=== PATIENT | male | born 1985 ===

== ENCOUNTER 2017-06-16 15:43 | Inpatient (IN) | payer MEDICAID ==
--- NOTE | 2017-06-16 16:14 | C.PDOC ---
History Of Present Illness Patient is a 31 y/o male who presents to the ED as a psych transfer from [facility] for substance abuse and SI. Patient is calm and cooperative. Admits to depression and anxiety. Patient states he has no physical complaints at this time. Time Seen by Provider: 06/16/17 15:51 Chief Complaint (Nursing): Psychiatric Evaluation History Per: Patient, EMS History/Exam Limitations: other (AMS) Modifying Factor(s): Other (opioid use. ) Associated Symptoms: Anxiety, Depression Recent travel outside of the [place]: No Past Medical History Reviewed: Historical Data, Nursing Documentation, Vital Signs Vital Signs: Last Vital Signs Temp 97.5 F L 06/16/17 15:45 Pulse 70 06/16/17 15:45 Resp 16 06/16/17 15:45 BP 115/71 06/16/17 15:45 Pulse Ox 100 06/16/17 16:14 - Medical History PMH: No Chronic Diseases Surgical History: No Surg Hx Family History: States: No Known Family Hx - Social History Hx Alcohol Use: No Hx Substance Use: Yes - Immunization History Hx Tetanus Toxoid Vaccination: No Hx Influenza Vaccination: No Hx Pneumococcal Vaccination: No Review Of Systems Review Of Systems: ROS cannot be obtained secondary to pt's inabilty to answer questions. (AMS) ED Course And Treatment O2 Sat by Pulse Oximetry: 100 (Room air) Pulse Ox Interpretation: Normal Medical Decision Making Medical Decision Making: Plan: Admit to Psych. Disposition - Disposition Disposition Time: 16:13 Condition: GUARDED - Clinical Impression Clinical Impression: Single major depressive episode, severe, with psychosis, Suicidal ideations - Scribe Statement The provider has reviewed the documentation as recorded by the Scribtigre Myles All medical record entries made by the Lloydibtigre were at my direction and personally dictated by me. I have reviewed the chart and agree that the record accurately reflects my personal performance of the history, physical exam, medical decision making, and the department course for this patient. I have also personally directed, reviewed, and agree with the discharge instructions and disposition.
[2017-06-16] MEDS ORDERED: Aluminum Hydroxide/Magnesium Hydroxide Susp (30 mL) PO PRN (17:26)
--- NOTE | 2017-06-16 18:48 | PCM.BM ---
<Megan Murphy - Last Filed: 06/16/17 18:46> Treatment Plan Problems - Problems identified on initial assessmt Depression Date Initiated: 06/16/17 Time Initiated: 18:46 Assessment reference: NA Status: Active Treatment assets and liabiliti Patient Assests: cooperative, self-reliant, ADL independent Patient Liabilities: relationship conflicts, substance abuse - Milieu Protocol Maintain good personal hygiene: daily Encourage regular showers, daily Remind patient to perform daily oral care Conduct patient checks and document Observation sheet: Q15 minutes Maintain personal safety: every shift Educate patient to report safety concerns to staff, every shift Monitor environment for contraband/sharps Medication safety: Monitor for expected outcome, potential side effects: every shift, Assess barriers to learning: every shift, Assess readiness for medication education: every shift <Meme Shannon - Last Filed: 06/17/17 11:25> Family Contact Family involvement: Family/SO is involved Family contact: Patient declines to allow family contact at present - Goals for Treatment Patient goals for treatment: "I want to go home." Discharge/Continuing Care - Education Needs Education Needs: Patient Medication, Patient Coping Skills - Discharge Discharge Criteria: Tolerates medication w/o severe side effects, Reduction of target symptoms Discharge to:: Home, With Family - Treatment Team Participation Discussed with Family/SO: No Was Patient/Family/SO present at Treatment Team Meeting: Yes <Magda York - Last Filed: 06/17/17 11:27> - Diagnosis (1) Bipolar disorder, current episode mixed, moderate Status: Acute Interventions: 06/17/17 11:26 * Assess/adjust medications daily and /or as needed * See patient on an individual basis 7x/week to assess level of manic behaviors and stability * Discuss risks, benefits, side effects and alternatives of medications * (2) Opioid use disorder, severe, dependence Status: Acute Interventions: 06/17/17 11:27 * Assess 7x/week regarding severity of withdrawal * Educate regarding risks, benefits, side effects and alternatives of medications * Use Motivational Interviewing for abstinence * Use CBT for relapse prevention * Medication management for withdrawal symptoms * Encourage medication assisted treatment *
--- NOTE | 2017-06-17 09:40 | PCM.PSYCH ---
Initial Psychiatric Evaluation - Initial Psychiatric Evaluation Type of Admission: Voluntary Legal Status: Capacity Chief Complaint (in patient's own words): I am feeling depressed. History of Present Illness and Precipitating Events: Pt. is seen, chart reviewed, and case discussed with staff. Pt. is a 31 y/o male who presented to the ED as a psych transfer from [facility] for substance abuse and SI. Pt. states he tried to kill himself by overdosing on Xanax and Tylenol, but had failed. Pt. has past history of suicide attempt 2 yrs. ago where he overdosed on pills but was unsuccessful. Pt. reports to being depressed and anxious. Pt. claims to using 24 bags of heroin IV daily for the past 5 yrs. His last use was yesterday at 7 AM, where he used 22 bags IV. His longest period of sobriety was for 2 yrs. in [id number]. Pt. is currently experiencing withdrawal sxs.--anxiety, restless leg, back pain , yawning, and insomnia. Pt. denies use of marijuana, cocaine, PCP, and LSD. Pt. reports to smoking one pack of cigarettes daily. Pt. denies use of alcohol. Pt. states he has been depressed for about 4 yrs. now. Pt. reports he has been hospitalized in the past for depression and was taking medications, but does not remember the names. Pt. reports he used to have auditory hallucinations, but denies having them now. He also denies visual hallucinations. Pt. claims he was unable to sleep and is very anxious due to withdrawal from heroin. He claims to having decreased energy and concentration. Pt. also reports that his brain is running 100 ,miles per hour. He also reports elevated moo and flight of ideas. Past Psych Hx: has been seeing psychiatrist (Dr. Salcido at [facility], 1x every 2 wks. for 4 months; hospitalization for depression; 2x suicide attempts; denies detox, rehab PMH: denies Fam. Hx: denies Social: single; no children; lives with sister at [place] (sister does not use) ; unemployed-receives support from family After care discussed. Pt. is willing to go to outpatient treatment after discharge. Current Medications: Active Medications Generic Name Dose Route Start Last Admin Trade Name Freq PRN Reason Stop Dose Admin Al Hydrox/Mg Hydrox/Simethicone 30 ml 06/16/17 17:26 Maalox 30 Ml PO TID PRN Indigestion / Heartburn Clonidine HCl 0.1 mg 06/16/17 17:26 Catapres PO Q8 PRN COWS Score More or Equal to 5 Hydroxyzine HCl 25 mg 06/16/17 17:26 06/17/17 08:17 Atarax PO 25 mg Q6 PRN Administration Agitation Loperamide HCl 2 mg 06/16/17 17:26 Imodium PO Q8 PRN Diarrhea Ondansetron HCl 4 mg 06/16/17 17:26 Zofran Tab PO Q8 PRN Nausea/Vomiting Pseudoephedrine HCl 60 mg 06/16/17 17:26 Sudafed Tab PO QID PRN Nasal/Sinus Congestion Quetiapine Fumarate 50 mg 06/16/17 22:00 06/16/17 21:35 Seroquel PO 50 mg HS NAIDA Administration Past Psychiatric History - Past Psychiatric History Previous Treatment History: Inpatient Pertinent Medical Hx (Current Medical&Sleep Prob, Allergies): Allergies Allergy/AdvReac Type Severity Reaction Status Date / Time No Known Allergies Allergy Unverified 06/16/17 15:45 No Known Home Med 06/16/17 Review of Systems - Review of Systems All systems: reviewed and no additional remarkable complaints except - Psychiatric Psychiatric: Anxiety, Irritability, Suicidal Ideation Mental Status Examination - Personal Presentation Personal Presentation: Looks stated age - Affect Affect: Constricted, Depressed - Motor Activity Motor Activity: Psychomotor Agitation - Reliability in Providing Information Reliability in Providing Information: Poor, due to altered mood - Speech Speech: Organized - Mood Mood: Depressed, Anxious - Formal Thought Process Formal Thought Process: No Impairment - Obsessions/Compulsions Obsessions: No Compulsions: No - Cognitive Functions Orientation: Person, Place, Situation, Time Sensorium: Alert Attention/Concentration: Attentive Abstract Thinking: [place] Estimate of Intelligence: Below average Judgement: Imparied, as evidence by: Poor judgement, Imparied, as evidence by: Lack of insight into illness - Risk Risk: Suicidal, Withdrawal, Diminished functioning - Strength & Assets Inventory Strength & Assets Inventory: Employment history DSM 5 DX - DSM 5 DSM 5 Diagnosis: Bipolar disorder mixed moderate Opiate use disorder severe Opiate withdrawal - Recommended/Plan of Treatment Treatment Recommendations and Plan of Treatment: Bipolar disorder mixed moderate Seroquel 100 mg PO HS Depakote 250 mg PO BID CBT Psychoeducation Supportive therapy, group therapy, individual therapy Opiate use disorder severe CBT for relapse prevention Psychoeducation Supportive therapy, individual therapy Use [place] for abstinence Opiate withdrawal Support and Psychoeducation daily Attend group activities daily Methadone taper Clonidine 0.1 mg PO Q8 PRN Neurontin 300 mg pO BID Projected ELOS: 6-7 days - Smoking Cessation Smoking Cessation Initiated: No
[2017-06-17] MEDS: Divalproex 250 mg DR Tab PO SCH (17:20)
[2017-06-18] MEDS: Divalproex 250 mg DR Tab PO SCH (09:33)
--- NOTE | 2017-06-18 10:05 | PCM.PYCHPN ---
Psychiatric Progress Note - Psychiatric Progress Note Patient seen today, length of contact: 16 min Patient Chief Complaint: I am feeling depressed. Medication Change: Yes (methadone taper, increase depakote) Medical Record Reviewed: Yes Mental Status Examination - Cognitive Function Orientation: Person, Place, Situation, Time - Mood Mood: Depressed, Anxious - Affect Affect: Constricted, Depressed - Formal Thought Process Formal Thought Process: No Impairment Goal/Treatment Plan - Goal/Treatment Plan Progress Toward Problem(s) and Goals/Treatment Plan: Bipolar disorder mixed moderate Seroquel 100 mg PO HS Depakote 250 mg PO BID CBT Psychoeducation Supportive therapy, group therapy, individual therapy Opiate use disorder severe CBT for relapse prevention Psychoeducation Supportive therapy, individual therapy Use [place] for abstinence Opiate withdrawal Support and Psychoeducation daily Attend group activities daily Methadone taper Clonidine 0.1 mg PO Q8 PRN Neurontin 300 mg pO BID
[2017-06-18] MEDS: Divalproex 500 mg DR Tab PO SCH (17:54)
[2017-06-19] MEDS: Divalproex 500 mg DR Tab PO SCH (09:50)
--- NOTE | 2017-06-19 11:35 | PCM.PYCHPN ---
Psychiatric Progress Note - Psychiatric Progress Note Patient seen today, length of contact: 16 min Patient Chief Complaint: I am feeling depressed. Medication Change: Yes (methadone taper, increase depakote) Medical Record Reviewed: Yes Mental Status Examination - Cognitive Function Orientation: Person, Place, Situation, Time - Mood Mood: Depressed, Anxious - Affect Affect: Constricted, Depressed - Formal Thought Process Formal Thought Process: No Impairment Goal/Treatment Plan - Goal/Treatment Plan Progress Toward Problem(s) and Goals/Treatment Plan: Bipolar disorder mixed moderate Seroquel 100 mg PO HS Depakote 250 mg PO BID CBT Psychoeducation Supportive therapy, group therapy, individual therapy Opiate use disorder severe CBT for relapse prevention Psychoeducation Supportive therapy, individual therapy Use [place] for abstinence Opiate withdrawal Support and Psychoeducation daily Attend group activities daily Methadone taper Clonidine 0.1 mg PO Q8 PRN Neurontin 300 mg pO BID
[2017-06-19 16:29] VITALS: BP 122/84; PULSE 102; RESP 20; TEMP 98.6; O2SAT 98
[2017-06-19] MEDS ORDERED: Divalproex 500 mg DR Tab PO SCH (22:00)
[2017-06-19] MEDS ORDERED: Divalproex 250 mg DR Tab PO SCH (22:00)
[2017-06-20] MEDS ORDERED: Divalproex 500 mg DR Tab PO SCH (10:00)
--- NOTE | 2017-06-20 10:13 | PCM.PYCHDC ---
Mental Status Examination - Mental Status Examination Orientation: Person, Place, Situation, Time Memory: Intact Mood: Neutral Affect: Constricted Speech: Soft Attention: WNL Concentration: WNL Association: WNL Fund of Knowledge: WNL Formal Thought Process: No Impairment Description of patient's judgement and insight: good, fair Psychotic Thoughts and Behaviors: denies any AVH Suicidal Ideation: No Current Homicidal Ideation?: No Discharge Summary - Discharge Note Reason for Hospitalization: Pt. is seen, chart reviewed, and case discussed with staff. Pt. is a 31 y/o male who presented to the ED as a psych transfer from [facility] for substance abuse and SI. Pt. states he tried to kill himself by overdosing on Xanax and Tylenol, but had failed. Pt. has past history of suicide attempt 2 yrs. ago where he overdosed on pills but was unsuccessful. Pt. reports to being depressed and anxious. Pt. claims to using 24 bags of heroin IV daily for the past 5 yrs. His last use was yesterday at 7 AM, where he used 22 bags IV. His longest period of sobriety was for 2 yrs. in [id number]. Pt. is currently experiencing withdrawal sxs.--anxiety, restless leg, back pain , yawning, and insomnia. Pt. denies use of marijuana, cocaine, PCP, and LSD. Pt. reports to smoking one pack of cigarettes daily. Pt. denies use of alcohol. Pt. states he has been depressed for about 4 yrs. now. Pt. reports he has been hospitalized in the past for depression and was taking medications, but does not remember the names. Pt. reports he used to have auditory hallucinations, but denies having them now. He also denies visual hallucinations. Pt. claims he was unable to sleep and is very anxious due to withdrawal from heroin. He claims to having decreased energy and concentration. Pt. also reports that his brain is running 100 ,miles per hour. He also reports elevated moo and flight of ideas. Consultations:: List each consultation separately and include: 1. Reason for request. 2. Findings. 3. Follow-up Summary of Hospital Course include:: 1. Description of specific treatment plan utilized for patients during their course of treatmen. 2. Summarize the time- course for resolution of acute symptoms and/or regressed behaviors. 3. Describe issues identified and worked on during hospitalization. 4. Describe medication utilized. 5. Describe medical problems identified and treated. 6. Reassessment of suicide risk Summary of Hospital Course: During the course of his stay, patient (pt) started progressively improving and he no longer remained irritable, depressed, paranoid and suicidal. His mood was improved and he started attending groups and meetings and started socializing. Patient denied any feelings of hopelessness, helplessness, and worthlessness, denied any problem with the sleep or appetite, denied suicidal ideation or homicidal ideation. Pt denied any auditory or visual hallucinations. Some changes were made in his current medications and patient was discharged on following medications. He tolerated these medications very well and denied any side effects. CBT and KS were used. - Diagnosis (1) Bipolar disorder, current episode mixed, moderate Status: Acute (2) Opioid use disorder, severe, dependence Status: Acute - Final Diagnosis (DSM 5) Condition upon Discharge: GUARDED DSM 5: Bipolar disorder mixed moderate Opiate use disorder severe Opiate withdrawal Disposition: HOME/ ROUTINE Follow-up Treatment Plan: Education: Pt was educated and counseled about the risks and benefits of taking and not taking medications. Pt was educated and counseled about the risks of drinking and abusing drugs. Pt was educated and counseled to go to the ER or call 911 if pt develop suicidal ideation or homicidal ideation, worsening of symptoms or severe side effects of the meds. Prescriptions/Medication Reconciliation: Divalproex [Depakote DR] 500 mg PO BID #60 tcp QUEtiapine [Seroquel] 200 mg PO HS #30 tab - Smoking Cessation Smoking Cessation Medication prescribed: No - Antipsychotic Medications Pt discharged on 2 or more routine antipsychotic medications: No
== END 2017-06-20 12:40 | disposition home or self-care (01) | DRG 430 ==
LOC: C.ER 15:43 → C.5E 16:15 → C.ER 16:33
PROVIDERS: ADMIT Psychiatry & Neurology Psychiatry; ATTEND Psychiatry & Neurology Psychiatry
PROC: GZ56ZZZ Individual Psychotherapy, Supportive (ICD-10-PCS; principal; 2017-06-16)
PROC: GZHZZZZ Group Psychotherapy (ICD-10-PCS; 2017-06-16)
DX: F32.3 Major depressive disorder, single episode, severe with psychotic features (principal); F31.62 Bipolar disorder, current episode mixed, moderate; R45.851 Suicidal ideations; F11.23 Opioid dependence with withdrawal; F17.210 Nicotine dependence, cigarettes, uncomplicated; F41.9 Anxiety disorder, unspecified; G47.00 Insomnia, unspecified

== ENCOUNTER 2017-11-06 01:06 | Inpatient (IN) | payer MEDICAID ==
--- NOTE | 2017-11-06 01:36 | C.PDOC ---
History Of Present Illness Patient presents to the ER with a complaint of feeling depressed and wanted to kill himself. Patient states he wanted to overdose on tylenol pm, however, his sister grabbed him and brought him here. Denies physical complaints. Time Seen by Provider: 11/06/17 01:35 Chief Complaint (Nursing): Psychiatric Evaluation History Per: Patient History/Exam Limitations: no limitations Current Symptoms Are (Timing): Still Present Suicide/Self Injury Attempted (Context): None Modifying Factor(s): None Severity: None Pain Scale Rating Of: 0 Associated Symptoms: Depression, Suicidal Thoughts, Suicidal Plan Involuntary Hold By: None Recent travel outside of the [place]: No Past Medical History Reviewed: Historical Data, Nursing Documentation, Vital Signs Vital Signs: Last Vital Signs Temp 97.7 F 11/06/17 05:10 Pulse 72 11/06/17 05:10 Resp 18 11/06/17 05:10 BP 100/60 11/06/17 05:10 Pulse Ox 97 11/06/17 05:10 - Medical History PMH: Depression - [facility] Procedures GROUP PSYCHOTHERAPY (06/16/17) INDIVIDUAL PSYCHOTHERAPY, SUPPORTIVE (06/16/17) Family History: States: No Known Family Hx - Social History Hx Alcohol Use: No Hx Substance Use: Yes - Immunization History Hx Tetanus Toxoid Vaccination: No Hx Influenza Vaccination: No Hx Pneumococcal Vaccination: No Review Of Systems Constitutional: Negative for: Fever, Chills Gastrointestinal: Negative for: Nausea, Vomiting, Diarrhea Psych: Positive for: Depression, Suicidal ideation, Other (Homicidal ideation) Physical Exam - Physical Exam Appears: Non-toxic, No Acute Distress, Other (Depressed affect) Skin: Warm, Dry Head: Normacephalic Oral Mucosa: Moist Chest: Symmetrical, No Tenderness Cardiovascular: Rhythm Regular Respiratory: No Rales, No Rhonchi, No Wheezing Gastrointestinal/Abdominal: Soft, No Tenderness Neurological/Psych: Oriented x3 ED Course And Treatment - Laboratory Results Result Diagrams: 11/06/17 01:45 11/06/17 01:45 O2 Sat by Pulse Oximetry: 98 (room air) Pulse Ox Interpretation: Normal Progress Note: Blood work and urinalysis ordered. Crisis notified. 6 am vitals stable. awaitng crisis eval Disposition Counseled Patient/Family Regarding: Studies Performed, Diagnosis - Disposition Disposition Time: 01:35 Condition: FAIR Forms: [facility] (Macedonian) - Clinical Impression Clinical Impression: Depression - Scribe Statement The provider has reviewed the documentation as recorded by the Scribe Richard Jones All medical record entries made by the Scribe were at my direction and personally dictated by me. I have reviewed the chart and agree that the record accurately reflects my personal performance of the history, physical exam, medical decision making, and the department course for this patient. I have also personally directed, reviewed, and agree with the discharge instructions and disposition. Physician Patient Turnover Patient Signed Over To: Charli Fofana Handoff Comments: pending crisis eval
[2017-11-06 02:01] LABS: BASO % 0.7 % (0.0-2.0); EOS # 0.1 K/uL (0.0-0.7); EOS % 1.6 % (0.0-4.0); HEMOGLOBIN 13.1 g/dL (12.0-18.0); LYMPH # 2.4 K/uL (1.0-4.3); LYMPH % 35.7 % (20.0-40.0); MEAN CELL VOLUME 83.8 fL (80.0-94.0); MEAN CORPUSCULAR HEMOGLOBIN 29.2 pg (27.0-31.0); MEAN CORPUSCULAR HGB CONC 34.8 g/dL (33.0-37.0); MEAN PLATELET VOLUME 7.8 fL (7.2-11.7); MONO # 0.7 K/uL (0.0-0.8); NEUT # 3.4 K/uL (1.8-7.0); RBC 4.48 Mil/uL (4.40-5.90); RED CELL DISTRIBUTION WIDTH 14.9 % (11.5-14.5); WHITE BLOOD COUNT 6.7 K/uL (4.8-10.8)
[2017-11-06 02:14] LABS: ALBUMIN 4.1 g/dL (3.5-5.0); ALT/SGPT 85 U/L (21-72); AST/SGOT 62 U/L (17-59); BLOOD UREA NITROGEN 14 mg/dL (9-20); GFR AFRICAN-AMERICAN > 60; GFR NON-AFRICAN AMERICAN > 60
[2017-11-06 02:15] LABS: ACETAMINOPHEN < 10.0 ug/mL (10.0-30.0); SALICYLATE < 1.0 mg/dL 1
[2017-11-06 02:16] LABS: SQUAMOUS EPITHIAL < 1 /hpf (0-5); URINE BACTERIA RARE (<OCC); URINE BILIRUBIN NEGATIVE (NEGATIVE); URINE BLOOD NEGATIVE (NEGATIVE); URINE CLARITY Hazy (Clear); URINE COLOR Amber (YELLOW); URINE GLUCOSE (UA) NORMAL (Normal); URINE LEUKOCYTE ESTERASE NEG Leu/uL (Negative); URINE NITRATE NEGATIVE (NEGATIVE); URINE PROTEIN 1+ mg/dL (NEGATIVE)
[2017-11-06 02:42] LABS: BARBITURATES, UR NEGATIVE (NEGATIVE); BENZODIAZEPINES, UR NEGATIVE (NEGATIVE); PHENCYCLIDINE, UR NEGATIVE (NEGATIVE)
[2017-11-06 02:43] LABS: OPIATES, UR POSITIVE (NEGATIVE)
[2017-11-06 12:02] VITALS: O2SAT 98
--- NOTE | 2017-11-06 13:02 | PCM.BM ---
<RockmicheletLatia - Last Filed: 11/06/17 13:01> Treatment Plan Problems - Problems identified on initial assessmt Depression Date Initiated: 11/06/17 Time Initiated: 13:02 Assessment reference: NA Status: Active Suicidal Ideation Date Initiated: 11/06/17 Time Initiated: 13:02 Assessment reference: NA Status: Monitor Treatment assets and liabiliti Patient Assests: cooperative, self-reliant, ADL independent Patient Liabilities: substance abuse - Milieu Protocol Maintain good personal hygiene: every shift Encourage regular showers, every shift Remind patient to perform daily oral care, every shift Assist patient to perform ADL's Maintain personal safety: every shift Educate patient to report safety concerns to staff, every shift Monitor environment for contraband/sharps Medication safety: Monitor for expected outcome, potential side effects: every shift, Assess barriers to learning: every shift, Assess readiness for medication education: every shift <Meme Shannon - Last Filed: 11/08/17 10:40> Family Contact Family involvement: Famliy/SO not involved - Goals for Treatment Patient goals for treatment: "I want to leave." Discharge/Continuing Care - Education Needs Education Needs: Patient Medication, Patient Coping Skills - Discharge Discharge Criteria: Tolerates medication w/o severe side effects, Reduction of target symptoms Discharge to:: Home - Treatment Team Participation Discussed with Family/SO: No Was Patient/Family/SO present at Treatment Team Meeting: Yes <Magda York - Last Filed: 11/08/17 11:12> - Diagnosis (1) Bipolar disorder, current episode mixed, moderate Status: Acute Interventions: 11/08/17 11:12 * Assess/adjust medications daily and /or as needed * See patient on an individual basis 7x/week to assess level of manic behaviors and stability * Discuss risks, benefits, side effects and alternatives of medications * (2) Opioid use disorder, severe, dependence Status: Acute Interventions: 11/08/17 11:12 * Assess 7x/week regarding severity of withdrawal * Educate regarding risks, benefits, side effects and alternatives of medications * Use Motivational Interviewing for abstinence * Use CBT for relapse prevention * Medication management for withdrawal symptoms * Encourage medication assisted treatment *
[2017-11-06] MEDS ORDERED: Aluminum Hydroxide/Magnesium Hydroxide Susp (30 mL) PO PRN (14:02)
[2017-11-06] MEDS: Multiple Vitamins Tab PO SCH (14:36)
--- NOTE | 2017-11-06 15:00 | PCM.PSYCH ---
Initial Psychiatric Evaluation - Initial Psychiatric Evaluation Type of Admission: Voluntary Legal Status: Capacity Chief Complaint (in patient's own words): " I am depressed so I tried to take pills." History of Present Illness and Precipitating Events: The patient is a 31 year old single male who is currently unemployed, lives with his sister and has a 5 year old son. The patient reports that he is very depressed because his mother passed a way 2 weeks ago so he tried to overdose by taking pills. His sister saw him and stopped him and then brought him to the hospital. Per nurse, the pills he tried to take were TylenolPM. The patient reports that he has been depressed in the past and had previously been taking medications for depression and anxiety which he stopped one year ago. He reports that he also used to see a psychiatrist, Dr. Land, up until a year ago but something happened with his insurance so he stopped. The patient reports that he attempted suicide by overdoing on polls 1 year ago and that his sister brought him to the hospital after he swallowed them. The patient reports that he generally feels down, sleeps only 2-3 hours a night, has difficulty falling asleep and staying asleep, wakes up early in the morning, has a good appetite, and difficulty concentrating. The patient also admits to shooting 20bags of heroin a day for the past 2 years and does not share needles. He also admits to drinking 2-3 pints of liquor every day for the past 1.5 years. The patient reports that he get tremors and had a seizure 4 months ago after not drinking. The patient reports smoking 1 pack of cigarettes a day for the past 6 years. The patient denies the use of cocaine and other substances. The patient reports that he is currently withdrawing from heroin which he last used "14 bags last night." He reports feeling irritable, nauseous, and "hot and cold." He reports he has previously been on methadone before. Patient reports that his only support system is his sister. Psych Hx: Depression, Anxiety, ADD Medical Hx: denies Medications: denies Allergies: denies Family Psych Hx: denies Family Drug Abuse Hx: denies The patient was seen and examined at bedside. The patient is sitting with stooped posture and is awake, alert, and oriented x3. The patient appears well groomed and clearly depressed. He stares at the ground during the encounter with a sad expression on his face. The patient speaks clearly in a normal tone and responds to questions in a goal directed fashion. He has a sad and restricted affect. The patient is attentive during the encounter. Current Medications: Active Medications Generic Name Dose Route Start Last Admin Trade Name Freq PRN Reason Stop Dose Admin Al Hydrox/Mg Hydrox/Simethicone 30 ml 11/06/17 14:02 Maalox 30 Ml PO TID PRN Indigestion / Heartburn Chlordiazepoxide 25 mg 11/06/17 14:03 Librium PO Q4H PRN Alcohol Withdrawal Chlordiazepoxide 25 mg 11/06/17 18:00 Librium PO 11/11/17 17:59 Q6 NAIDA Taper Clonidine HCl 0.1 mg 11/06/17 14:00 Catapres PO Q8 PRN COWS Score More or Equal to 5 Folic Acid 1 mg 11/06/17 14:15 11/06/17 14:36 Folic Acid PO 1 mg DAILY NAIDA Administration Loperamide HCl 2 mg 11/06/17 14:02 Imodium PO Q8 PRN Diarrhea Multivitamins 1 tab 11/06/17 14:15 11/06/17 14:36 Hexavitamin PO 1 tab DAILY NAIDA Administration Ondansetron HCl 4 mg 11/06/17 14:00 Zofran Tab PO Q8 PRN Nausea/Vomiting Pneumococcal Polyvalent Vaccine 0.5 ml 11/10/17 10:00 Pneumovax 23 Vaccine IM 11/10/17 10:01 .ONCE ONE Pseudoephedrine HCl 60 mg 11/06/17 15:00 Sudafed Tab PO QID PRN Nasal/Sinus Congestion Thiamine HCl 100 mg 11/06/17 14:15 11/06/17 14:36 Vitamin B1 Tab PO 100 mg DAILY NAIDA Administration Past Psychiatric History - Past Psychiatric History Previous Treatment History: Inpatient Pertinent Medical Hx (Current Medical&Sleep Prob, Allergies): Allergies Allergy/AdvReac Type Severity Reaction Status Date / Time No Known Allergies Allergy Unverified 11/06/17 01:23 No Known Home Med 11/06/17 Review of Systems - Review of Systems All systems: reviewed and no additional remarkable complaints except - Constitutional Constitutional: Chills - Gastrointestinal Gastrointestinal: Nausea - Neurological Neurological: UNREMARKABLE - Psychiatric Psychiatric: Abnormal Sleep Pattern, Anxiety, Depression, Difficulty Concentrating, Hopelessness, Irritability, Suicidal Ideation Mental Status Examination - Personal Presentation Personal Presentation: Looks stated age - Affect Affect: Constricted, Depressed - Motor Activity Motor Activity: Calm - Reliability in Providing Information Reliability in Providing Information: Fair - Speech Speech: Organized - Mood Mood: Depressed, Anxious - Formal Thought Process Formal Thought Process: No Impairment - Obsessions/Compulsions Obsessions: None Compulsions: None - Cognitive Functions Orientation: Person, Place, Situation, Time Sensorium: Alert Attention/Concentration: Attentive Abstract Thinking: [place] Estimate of Intelligence: Below average Judgement: Imparied, as evidence by: Poor judgement, Imparied, as evidence by: Lack of insight into illness Memory: Recent intact, as evidence by: Ability to recall events of the day, Remote intact, as evidenced by: Abilit to recall sig. life events - Risk Risk: Suicidal, Withdrawal, Diminished functioning - Strength & Assets Inventory Strength & Assets Inventory: Family support DSM 5 DX - DSM 5 DSM 5 Diagnosis: Bipolar depressed severe without psychotic features Opioid Use Disorder severe Alcohol Use Disorder severe Cocaine use severe - Recommended/Plan of Treatment Treatment Recommendations and Plan of Treatment: Bipolar depressed severe without psychotic features -Attend group and activities -Individual therapy daily -Psychoeducation and support daily -Encourage compliance with meds and after care -Refer to inpatient program -Teach Healthy lifestyle methods, i.e. diet, exercise, meditation -Seroquel Opioid use disorder severe -CBT -Psychoeducation -Supportive therapy, individual therapy -Use [place] for abstinence Opioid withdrawal -CBT -Psychoeducation Supportive therapy, individual therapy -Clonidine when necessary -Methadone taper -prn meds Alcohol use disorder severe -CBT -Psychoeducation -Supportive therapy, individual therapy -Use SC for abstinence Alcohol withdrawal -CBT -Psychoeducation Supportive therapy, individual therapy -Librium taper -Librium PRN Cocaine use disorder moderate -Monitor signs and symptoms -Use SC for abstinence
[2017-11-07 06:40] VITALS: RESP 20
[2017-11-07] MEDS: Multiple Vitamins Tab PO SCH (09:39)
--- NOTE | 2017-11-07 21:37 | PCM.PYCHPN ---
Psychiatric Progress Note - Psychiatric Progress Note Patient seen today, length of contact: 15 min Patient Chief Complaint: " I am feeling little better." Problems Identified/Issues Discussed: Patient seen and evaluated, chart reviewed and discussed with the nurse. Patient reports some improvement in his mood and reports some improvement in the anxiety symptoms. He reports some improvement in the withdrawal symptoms but still reports anxiety, back pains and cramps. He denies any auditory or visual hallucinations. He remained calm and cooperative. He is taking medication and denies any side effects. He needs more time for stabilization. Supportive therapy and psychoeducation were given. Medication Change: Yes (Methadone taper) Medical Record Reviewed: Yes Mental Status Examination - Cognitive Function Orientation: Person, Place, Situation, Time Memory: Intact Attention: WNL Concentration: Poor Association: WNL Fund of Knowledge: Poor - Mood Mood: Depressed, Anxious - Affect Affect: Constricted, Depressed - Speech Speech: Soft - Formal Thought Process Formal Thought Process: No Impairment - Suicidal Ideation Suicidal Ideation: No - Homicidal Ideation Homicidal Ideation: No Goal/Treatment Plan - Goal/Treatment Plan Need for Continued Stay: Severe depression anxiety Progress Toward Problem(s) and Goals/Treatment Plan: Bipolar depressed severe without psychotic features -Attend group and activities -Individual therapy daily -Psychoeducation and support daily -Encourage compliance with meds and after care -Refer to inpatient program -Teach Healthy lifestyle methods, i.e. diet, exercise, meditation -Seroquel Opioid use disorder severe -CBT -Psychoeducation -Supportive therapy, individual therapy -Use [place] for abstinence Opioid withdrawal -CBT -Psychoeducation Supportive therapy, individual therapy -Clonidine when necessary -Methadone taper -prn meds Alcohol use disorder severe -CBT -Psychoeducation -Supportive therapy, individual therapy -Use [place] for abstinence Alcohol withdrawal -CBT -Psychoeducation Supportive therapy, individual therapy -Librium taper -Librium PRN Cocaine use disorder moderate -Monitor signs and symptoms -Use VA for abstinence - Smoking Cessation Smoking Cessation Initiated: No
[2017-11-08 06:33] VITALS: BP 111/72; PULSE 75; TEMP 98.1
[2017-11-08] MEDS: Multiple Vitamins Tab PO SCH (09:33)
--- NOTE | 2017-11-08 11:11 | PCM.PYCHDC ---
Mental Status Examination - Mental Status Examination Orientation: Person, Place, Situation, Time Memory: Intact Mood: Neutral Affect: Constricted Speech: Soft Attention: WNL Concentration: WNL Association: WNL Fund of Knowledge: WNL Formal Thought Process: No Impairment Description of patient's judgement and insight: good, fair Psychotic Thoughts and Behaviors: denies any AVH Suicidal Ideation: No Current Homicidal Ideation?: No Discharge Summary - Discharge Note Reason for Hospitalization: The patient is a 31 year old single male who is currently unemployed, lives with his sister and has a 5 year old son. The patient reports that he is very depressed because his mother passed a way 2 weeks ago so he tried to overdose by taking pills. His sister saw him and stopped him and then brought him to the hospital. Per nurse, the pills he tried to take were TylenolPM. The patient reports that he has been depressed in the past and had previously been taking medications for depression and anxiety which he stopped one year ago. He reports that he also used to see a psychiatrist, Dr. Land, up until a year ago but something happened with his insurance so he stopped. The patient reports that he attempted suicide by overdoing on polls 1 year ago and that his sister brought him to the hospital after he swallowed them. The patient reports that he generally feels down, sleeps only 2-3 hours a night, has difficulty falling asleep and staying asleep, wakes up early in the morning, has a good appetite, and difficulty concentrating. The patient also admits to shooting 20bags of heroin a day for the past 2 years and does not share needles. He also admits to drinking 2-3 pints of liquor every day for the past 1.5 years. The patient reports that he get tremors and had a seizure 4 months ago after not drinking. The patient reports smoking 1 pack of cigarettes a day for the past 6 years. The patient denies the use of cocaine and other substances. The patient reports that he is currently withdrawing from heroin which he last used "14 bags last night." He reports feeling irritable, nauseous, and "hot and cold." He reports he has previously been on methadone before. Patient reports that his only support system is his sister. Consultations:: List each consultation separately and include: 1. Reason for request. 2. Findings. 3. Follow-up Summary of Hospital Course include:: 1. Description of specific treatment plan utilized for patients during their course of treatmen. 2. Summarize the time- course for resolution of acute symptoms and/or regressed behaviors. 3. Describe issues identified and worked on during hospitalization. 4. Describe medication utilized. 5. Describe medical problems identified and treated. 6. Reassessment of suicide risk Summary of Hospital Course: During the course of his stay, patient (pt) started progressively improving and he no longer remained irritable, depressed, and suicidal. His mood and anxiety symptoms were improved and he started attending groups and meetings and started socializing. Patient denied any feelings of hopelessness, helplessness, and worthlessness, denied any problem with the sleep or appetite, denied suicidal ideation or homicidal ideation. Pt denied any auditory or visual hallucinations. Some changes were made in his current medications and patient was discharged on following medications. He tolerated these medications very well and denied any side effects. Today, he signed 48 hours notice and requested discharge today and was not interested in referrals. [place] provided pt with information for [facility] in [place] should he be interested in treatment in the future. [place] also arranged transportation via [facility] for today at 11 a.m. - Final Diagnosis (DSM 5) Condition upon Discharge: FAIR DSM 5: Bipolar depressed severe without psychotic features Opioid use disorder severe Opioid withdrawal Alcohol use disorder severe Alcohol withdrawal Cocaine use disorder moderate Disposition: HOME/ ROUTINE Follow-up Treatment Plan: Education: Pt was educated and counseled about the risks and benefits of taking and not taking medications. Pt was educated and counseled about the risks of drinking and abusing drugs. Pt was educated and counseled to go to the ER or call 911 if pt develop suicidal ideation or homicidal ideation, worsening of symptoms or severe side effects of the meds. Prescriptions/Medication Reconciliation: Gabapentin [Neurontin] 100 mg PO BID 14 Days cap QUEtiapine [Seroquel] 100 mg PO HS #14 tab - Smoking Cessation Smoking Cessation Medication prescribed: No - Antipsychotic Medications Pt discharged on 2 or more routine antipsychotic medications: No
[2017-11-09] MEDS ORDERED: Pneumococcal 23-Valent Vaccine IM ONE (10:00)
[2017-11-10] MEDS ORDERED: Pneumococcal 23-Valent Vaccine IM ONE (10:00)
== END 2017-11-08 11:50 | disposition home or self-care (01) | DRG 430 ==
LOC: C.ER 01:06 → C.5E 11:40
PROVIDERS: ADMIT Psychiatry & Neurology Psychiatry; ATTEND Psychiatry & Neurology Psychiatry
PROC: GZ56ZZZ Individual Psychotherapy, Supportive (ICD-10-PCS; principal; 2017-11-06)
PROC: GZHZZZZ Group Psychotherapy (ICD-10-PCS; 2017-11-06)
PROC: HZ2ZZZZ Detoxification Services for Substance Abuse Treatment (ICD-10-PCS; 2017-11-06)
PROC: HZ52ZZZ Individual Psychotherapy for Substance Abuse Treatment, Cognitive-Behavioral (ICD-10-PCS; 2017-11-06)
PROC: HZ59ZZZ Individual Psychotherapy for Substance Abuse Treatment, Supportive (ICD-10-PCS; 2017-11-06)
PROC: HZ56ZZZ Individual Psychotherapy for Substance Abuse Treatment, Psychoeducation (ICD-10-PCS; 2017-11-06)
PROC: HZ42ZZZ Group Counseling for Substance Abuse Treatment, Cognitive-Behavioral (ICD-10-PCS; 2017-11-06)
PROC: HZ46ZZZ Group Counseling for Substance Abuse Treatment, Psychoeducation (ICD-10-PCS; 2017-11-06)
DX: F31.4 Bipolar disorder, current episode depressed, severe, without psychotic features (principal); R45.851 Suicidal ideations; F10.230 Alcohol dependence with withdrawal, uncomplicated; F11.23 Opioid dependence with withdrawal; F14.10 Cocaine abuse, uncomplicated; F17.210 Nicotine dependence, cigarettes, uncomplicated; F41.9 Anxiety disorder, unspecified; Y90.0 Blood alcohol level of less than 20 mg/100 ml

== ENCOUNTER 2018-04-14 09:12 | Inpatient (IN) | payer MEDICAID ==
--- NOTE | 2018-04-14 10:26 | C.PDOC ---
History Of Present Illness 32-year-old male, PMHx includes Bipolar Disorder, presents to the emergency department with complaints of two-month duration of increasing depression. Patient states that he is unable to get out of bed, he does not want to shower or brush his teeth. Today, he went to the kitchen in order to use a knife to cut himself, but his sister stopped him and brought him to the ED for evaluation. Denies nausea/vomiting, fever, chest pain or any other associated symptoms. No other complaints at this time. Time Seen by Provider: 04/14/18 09:21 Chief Complaint (Nursing): Psychiatric Evaluation History Per: Patient History/Exam Limitations: no limitations Onset/Duration Of Symptoms: Days Current Symptoms Are (Timing): Still Present Past Medical History Reviewed: Historical Data, Nursing Documentation, Vital Signs Vital Signs: Last Vital Signs Temp 99.2 F 04/14/18 09:15 Pulse 110 H 04/14/18 09:15 Resp 18 04/14/18 09:15 BP 143/82 04/14/18 09:15 Pulse Ox 97 04/14/18 10:54 - Medical History PMH: Asthma, Depression - [facility] Procedures DETOXIFICATION SERVICES FOR SUBSTANCE ABUSE TREATMENT (11/06/17) GROUP BRUSH HOLDER ASSEMBLER FOR SUBSTANCE ABUSE TREATMENT, PSYCHOEDUCATION (11/06/17) GROUP BRUSH HOLDER ASSEMBLER FOR SUBSTANCE ABUSE, COGNITIVE BEHAVIORAL (11/06/17) GROUP PSYCHOTHERAPY (11/06/17) INDIV PSYCHOTHERAPY FOR SUBSTANCE ABUSE TREATMENT, SUPPORT (11/06/17) INDIV PSYCHOTHERAPY FOR SUBSTANCE ABUSE, COGNITIV BEHAVIORAL (11/06/17) INDIV PSYCHOTHERAPY FOR SUBSTANCE ABUSE, PSYCHOEDUCATION (11/06/17) INDIVIDUAL PSYCHOTHERAPY, SUPPORTIVE (11/06/17) Family History: States: No Known Family Hx - Social History Hx Alcohol Use: Yes Hx Substance Use: Yes - Immunization History Hx Tetanus Toxoid Vaccination: No Hx Influenza Vaccination: No Hx Pneumococcal Vaccination: No Review Of Systems Constitutional: Negative for: Fever Cardiovascular: Negative for: Chest Pain, Palpitations Respiratory: Negative for: Shortness of Breath Gastrointestinal: Negative for: Nausea, Vomiting Psych: Positive for: Depression, Suicidal ideation. Negative for: Psychosis Physical Exam - Physical Exam Appears: Non-toxic, No Acute Distress Skin: Normal Color, Warm, Dry, No Rash Head: Atraumatic, Normacephalic Eye(s): bilateral: Normal Inspection Nose: Normal Oral Mucosa: Moist Lips: Normal Appearing Neck: Normal ROM Chest: Symmetrical Cardiovascular: Rhythm Regular, No Murmur Respiratory: Normal Breath Sounds, No Accessory Muscle Use Gastrointestinal/Abdominal: Soft, No Tenderness Extremity: Normal ROM, No Deformity, No Swelling Neurological/Psych: Oriented x3, Normal Speech ED Course And Treatment - Laboratory Results Result Diagrams: 04/14/18 10:37 04/14/18 10:37 O2 Sat by Pulse Oximetry: 97 (RA) Pulse Ox Interpretation: Normal Disposition - Disposition Disposition: HOSPITALIZED Disposition Time: 11:37 Condition: GUARDED Forms: [employer] (Uzbek) - Clinical Impression Clinical Impression: Bipolar 1 disorder, Depression, Suicidal ideations - Scribe Statement The provider has reviewed the documentation as recorded by the Scribe (Julio Morales) All medical record entries made by the Scribe were at my direction and personally dictated by me. I have reviewed the chart and agree that the record accurately reflects my personal performance of the history, physical exam, medical decision making, and the department course for this patient. I have also personally directed, reviewed, and agree with the discharge instructions and disposition. Decision To Admit - Pt Status Changed To: Hospital Disposition Of: Inpatient - Admit Certification Admit to Inpatient:: After my assessment, the patient will require hospitalization for at least two midnights. This is because of the severity of symptoms shown, intensity of services needed, and/or the medical risk in this patient being treated as an outpatient. - InPatient: Physician Admission Certification: I certify that this patient requires 2 or more midnights of care for the following reason:: needs inpatient psych management SI - . Bed Request Type: Psychiatry Admitting Physician: Magda York Patient Diagnosis: Bipolar 1 disorder, Depression, Suicidal ideations
[2018-04-14 10:42] LABS: BASO # 0.1 K/uL (0.0-0.2); BASO % 0.5 % (0.0-2.0); EOS # 0.2 K/uL (0.0-0.7); EOS % 1.4 % (0.0-4.0); HEMOGLOBIN 11.5 g/dL (12.0-18.0); LYMPH # 0.7 K/uL (1.0-4.3); LYMPH % 4.6 % (20.0-40.0); MEAN CELL VOLUME 84.8 fL (80.0-94.0); MEAN CORPUSCULAR HEMOGLOBIN 28.8 pg (27.0-31.0); MONO # 1.3 K/uL (0.0-0.8); MONO % 8.5 % (0.0-10.0); NEUT # 13.1 K/uL (1.8-7.0); PLATELET COUNT 281 K/uL (130-400); RBC 3.98 Mil/uL (4.40-5.90); RED CELL DISTRIBUTION WIDTH 14.5 % (11.5-14.5); WHITE BLOOD COUNT 15.4 K/uL (4.8-10.8)
[2018-04-14 10:46] LABS: SQUAMOUS EPITHIAL < 1 /hpf (0-5); URINE BILIRUBIN NEGATIVE (NEGATIVE); URINE CLARITY Clear (Clear); URINE COLOR Yellow (YELLOW); URINE GLUCOSE (UA) NORMAL (Normal); URINE LEUKOCYTE ESTERASE NEG Leu/uL (Negative); URINE PROTEIN NEGATIVE (NEGATIVE); URINE UROBILINOGEN NORMAL mg/dL (0.2-1.0)
[2018-04-14 10:52] LABS: URINE BLOOD TRACE (NEGATIVE)
[2018-04-14 10:56] LABS: ALB/GLOB RATIO 1.2 (1.0-2.1); ALT/SGPT 36 U/L (21-72); AST/SGOT 30 U/L (17-59); BLOOD UREA NITROGEN 14 mg/dL (9-20); CALCIUM 8.6 mg/dl (8.6-10.4); GFR AFRICAN-AMERICAN > 60; GFR NON-AFRICAN AMERICAN > 60
[2018-04-14 11:10] LABS: BARBITURATES, UR NEGATIVE (NEGATIVE); BENZODIAZEPINES, UR NEGATIVE (NEGATIVE)
[2018-04-14 11:22] LABS: BANDS 3 % (0-2); EOSINOPHIL 2 % (0-4); LYMPHOCYTE 6 % (20-40); MONOCYTE 9 % (0-10); NEUTROPHIL 80 % (50-75); TOTAL CELLS COUNTED 100
[2018-04-14 11:23] LABS: PLATELET ESTIMATE NORMAL (NORMAL)
[2018-04-14 11:47] LABS: OPIATES, UR POSITIVE (NEGATIVE); PHENCYCLIDINE, UR POSITIVE (NEGATIVE)
[2018-04-14 12:50] VITALS: O2SAT 98
[2018-04-14] MEDS ORDERED: Aluminum Hydroxide/Magnesium Hydroxide Susp (30 mL) PO PRN (14:20)
--- NOTE | 2018-04-14 14:45 | PCM.BM ---
<Megan Matosn - Last Filed: 04/14/18 14:41> Treatment Plan Problems - Problems identified on initial assessmt Depression Date Initiated: 04/14/18 Time Initiated: 14:42 Assessment reference: NA Status: Active Substance Abuse Date Initiated: 04/14/18 Time Initiated: 14:42 Assessment reference: NA Status: Active Treatment assets and liabiliti Patient Assests: cooperative, self-reliant, ADL independent, physically healthy , negotiates basic needs Patient Liabilities: financial problems, substance abuse - Milieu Protocol Maintain good personal hygiene: daily Encourage regular showers, daily Remind patient to perform daily oral care, daily Assist patient to perform ADL's Conduct patient checks and document Observation sheet: Q15 minutes Maintain personal safety: every shift Educate patient to report safety concerns to staff, every shift Monitor environment for contraband/sharps Medication safety: Monitor for expected outcome, potential side effects: every shift, Assess barriers to learning: every shift, Assess readiness for medication education: every shift <Meme Shannon - Last Filed: 04/16/18 13:10> Family Contact Family involvement: Famliy/SO not involved - Goals for Treatment Patient goals for treatment: "I want to go to rehab." Discharge/Continuing Care - Education Needs Education Needs: Patient Medication, Patient Coping Skills, Patient Placement options, Patient Community resources - Discharge Discharge Criteria: Tolerates medication w/o severe side effects, No longer exhibiting s/s of withdrawal, Reduction of target symptoms Discharge to:: Substance Abuse Rehab - Treatment Team Participation Discussed with Family/SO: No Was Patient/Family/SO present at Treatment Team Meeting: Yes <Chance Bruce - Last Filed: 04/18/18 17:32> - Diagnosis (1) Bipolar 1 disorder, depressed, severe Status: Acute Interventions: 04/18/18 17:31 * Assess/adjust medications daily and /or as needed * See patient on an individual basis 7x/week to assess symptoms of depression * Monitor for side effects & effectiveness of medications (2) Opioid use disorder, severe, dependence Status: Acute Interventions: 04/18/18 17:31 * Assess 7x/week regarding severity of withdrawal * Educate regarding risks, benefits, side effects and alternatives of medications * Use Motivational Interviewing for abstinence * Use CBT for relapse prevention * Medication management for withdrawal symptoms * Encourage medication assisted treatment (3) Alcohol use disorder, severe, dependence Status: Acute Interventions: 04/18/18 17:31 * Assess 7x/week regarding severity of withdrawal * Educate regarding risks, benefits, side effects and alternatives of medications * Use Motivational Interviewing for abstinence * Use CBT for relapse prevention * Medication management for withdrawal symptoms * Encourage medication assisted treatment
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
--- NOTE | 2018-04-15 14:27 | PCM.PYCHPN ---
Psychiatric Progress Note - Psychiatric Progress Note Patient seen today, length of contact: 15 minutes Patient Chief Complaint: I'm feeling little better. Problems Identified/Issues Discussed: Patient seen, chart reviewed, case discussed with the staff. Issues related to illness and treatment were discussed with the patient and staff. Reported compliant with treatment with no adverse affects. Tolerating treatment very well. Patient reported feeling little better. Calm and cooperative with good eye contact. Aftercare discussed with the patient. Awake alert oriented 3, no delusions, no auditory or visual hallucination, nose suicidal ideation or homicidal ideation at time of evaluation. Medical Problems: None reported Diagnostic Results: Reviewed DSM 5 Symptoms Update: Some improvement with treatment Medication Change: No Medical Record Reviewed: Yes Mental Status Examination - Cognitive Function Orientation: Person, Place, Situation, Time Memory: Intact Attention: WNL Concentration: WNL Association: WN Fund of Knowledge: [facility] Decription of patient's judgement and insights: Fair - Mood Mood: Depressed - Affect Affect: Depressed - Formal Thought Process Formal Thought Process: No Impairment Psychotic Thoughts and Behaviors: None - Suicidal Ideation Suicidal Ideation: No - Homicidal Ideation Homicidal Ideation: No Goal/Treatment Plan - Goal/Treatment Plan Need for Continued Stay: Remain at risks for inpatient hospitalization, Discharge may exacerbated symptoms, Severe functional impairment Progress Toward Problem(s) and Goals/Treatment Plan: Patient education. Supportive therapy. CBT for relapse prevention. [place] for abstinence. Will continue treatment with methadone taper and when necessary and Librium. Other when necessary medications. Patient wants to go to a half-way rehabilitation for follow-up care after discharge from the hospital. Estimated Date of D/C: 04/21/18 - Smoking Cessation Smoking Cessation Initiated: No
--- NOTE | 2018-04-16 23:26 | PCM.PYCHPN ---
Psychiatric Progress Note - Psychiatric Progress Note Patient seen today, length of contact: 15 minutes Patient Chief Complaint: I'm feeling little better. Carlos get extra dose of methadone. Problems Identified/Issues Discussed: Patient seen, chart reviewed, case discussed with the staff. Issues related to illness and treatment were discussed with the patient and staff. Reported compliant with treatment with no adverse affects. Tolerating treatment very well. Patient reported feeling little better. Calm and cooperative with good eye contact. Aftercare discussed with the patient. Awake alert oriented 3, no delusions, no auditory or visual hallucination, nose suicidal ideation or homicidal ideation at time of evaluation. Medical Problems: None reported Diagnostic Results: Reviewed DSM 5 Symptoms Update: Some improvement with treatment Medication Change: No Medical Record Reviewed: Yes Mental Status Examination - Cognitive Function Orientation: Person, Place, Situation, Time Memory: Intact Attention: WNL Concentration: WNL Association: WNL Fund of Knowledge: [facility] Decription of patient's judgement and insights: Fair - Mood Mood: Depressed - Affect Affect: Depressed - Speech Speech: Appropriate - Formal Thought Process Formal Thought Process: No Impairment Psychotic Thoughts and Behaviors: None - Suicidal Ideation Suicidal Ideation: No - Homicidal Ideation Homicidal Ideation: No Goal/Treatment Plan - Goal/Treatment Plan Need for Continued Stay: Remain at risks for inpatient hospitalization, Discharge may exacerbated symptoms, Severe functional impairment Progress Toward Problem(s) and Goals/Treatment Plan: Improving with treatment. Supportive therapy. Patient education. CBT for relapse prevention. [place] for abstinence. Will continue treatment as before. Patient wants to go to a rehabilitation for follow-up care after discharge from the hospital. Estimated Date of D/C: 04/21/18 - Smoking Cessation Smoking Cessation Initiated: Yes
--- NOTE | 2018-04-17 23:20 | PCM.PYCHPN ---
Psychiatric Progress Note - Psychiatric Progress Note Patient seen today, length of contact: 15 Mental Status Examination - Cognitive Function Orientation: Person, Place, Situation, Time - Mood Mood: Depressed - Affect Affect: Constricted, Depressed - Formal Thought Process Formal Thought Process: No Impairment - Homicidal Ideation Homicidal Ideation: No
[2018-04-18 06:41] VITALS: RESP 20; TEMP 98.1
[2018-04-18] MEDS: Multiple Vitamins Tab PO SCH (10:34)
--- NOTE | 2018-04-18 17:27 | PCM.PYCHPN ---
Psychiatric Progress Note - Psychiatric Progress Note Patient seen today, length of contact: 15 minutes Patient Chief Complaint: I'm feeling weak. Can I get multivitamin. I still have sleeping problem too. Problems Identified/Issues Discussed: Patient seen, chart reviewed, case discussed with the staff. Issues related to illness and treatment were discussed with the patient and staff. Reported compliant with treatment with no adverse affects. Tolerating treatment very well. Patient reported feeling weak and asking for multivitamins. Calm and cooperative with good eye contact. Aftercare discussed with the patient. Awake alert oriented 3, no delusions, no auditory or visual hallucination, nose suicidal ideation or homicidal ideation at time of evaluation. Medical Problems: None reported Diagnostic Results: Reviewed DSM 5 Symptoms Update: Some improvement with treatment Medication Change: Yes (Will start folic acid, thiamine and multivitamins.) Medical Record Reviewed: Yes Mental Status Examination - Cognitive Function Orientation: Person, Place, Situation, Time Memory: Intact Attention: WNL Concentration: WNL Association: WNL Fund of Knowledge: WN Decription of patient's judgement and insights: Fair - Mood Mood: Depressed - Affect Affect: Depressed - Speech Speech: Appropriate - Formal Thought Process Formal Thought Process: No Impairment Psychotic Thoughts and Behaviors: None - Suicidal Ideation Suicidal Ideation: No - Homicidal Ideation Homicidal Ideation: No Goal/Treatment Plan - Goal/Treatment Plan Need for Continued Stay: Remain at risks for inpatient hospitalization, Discharge may exacerbated symptoms, Severe functional impairment Progress Toward Problem(s) and Goals/Treatment Plan: Improving with treatment. Supportive therapy. Patient education. CBT for relapse prevention. [place] for abstinence. We will start folic acid, thiamine, multivitamins. Patient has history of alcohol use disorder. Will also increase the dose of trazodone to 150 mg at bedtime. Will continue rest of the treatment as before. Patient wants to go to a rehabilitation for follow-up care after discharge from the hospital. Estimated Date of D/C: 04/21/18 - Smoking Cessation Smoking Cessation Initiated: Yes
[2018-04-19] MEDS: Multiple Vitamins Tab PO SCH (09:22)
--- NOTE | 2018-04-19 13:40 | PCM.PYCHPN ---
Psychiatric Progress Note - Psychiatric Progress Note Patient seen today, length of contact: 16 min Patient Chief Complaint: "anxious" Problems Identified/Issues Discussed: The pt is seen, chart reviewed, case discussed with staff. Support and psychoeducation given, CBT and IN used briefly No new symptoms reported, improving slowly and needs more time No SEs from medications, risks discussed. prn librium stopped bc he was over-using that After care discussed Medication Change: Yes (meds adjusted) Medical Record Reviewed: Yes Mental Status Examination - Cognitive Function Orientation: Person, Place, Situation, Time Memory: Intact Attention: WNL Concentration: WNL Association: WNL Fund of Knowledge: WN - Mood Mood: Depressed, Anxious - Affect Affect: Constricted - Speech Speech: Appropriate - Formal Thought Process Formal Thought Process: No Impairment - Suicidal Ideation Suicidal Ideation: No - Homicidal Ideation Homicidal Ideation: No Goal/Treatment Plan - Goal/Treatment Plan Need for Continued Stay: Severe depression anxiety, Discharge may exacerbated symptoms, Severe functional impairment Progress Toward Problem(s) and Goals/Treatment Plan: Continue medications Support and psychoeducation daily Attend groups and activities daily After care planning by [place] Estimated Date of D/C: 04/21/18
[2018-04-20] MEDS: Multiple Vitamins Tab PO SCH (10:15)
--- NOTE | 2018-04-20 22:04 | PCM.PYCHPN ---
Psychiatric Progress Note - Psychiatric Progress Note Patient seen today, length of contact: 17 min Patient Chief Complaint: "I am still withdrawing, this never happened before" Problems Identified/Issues Discussed: The pt is seen, chart reviewed, case discussed with staff. Support and psychoeducation given, CBT and [place] used briefly Still has anxiety, COWS is low No new risky symptoms reported, improving slowly and needs more time New meds introduced, risks discussed No SEs from medications Yesterday, prn librium stopped bc he was over-using that After care discussed - he is interested in outpt mainly Medication Change: Yes (meds adjusted) Medical Record Reviewed: Yes Mental Status Examination - Cognitive Function Orientation: Person, Place, Situation, Time Memory: Intact Attention: WNL Concentration: WNL Association: WNL Fund of Knowledge: WNL - Mood Mood: Depressed, Anxious - Affect Affect: Constricted - Speech Speech: Appropriate - Formal Thought Process Formal Thought Process: No Impairment - Suicidal Ideation Suicidal Ideation: No - Homicidal Ideation Homicidal Ideation: No Goal/Treatment Plan - Goal/Treatment Plan Need for Continued Stay: Severe depression anxiety, Discharge may exacerbated symptoms, Severe functional impairment Progress Toward Problem(s) and Goals/Treatment Plan: Continue medications Support and psychoeducation daily Attend groups and activities daily After care planning by [place] Estimated Date of D/C: 04/21/18
[2018-04-21] MEDS: Multiple Vitamins Tab PO SCH (09:06)
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
[2018-04-21 10:05] VITALS: BP 134/87; PULSE 89
== END 2018-04-21 10:49 | disposition home or self-care (01) | DRG 430 ==
LOC: C.ER 09:12 → C.9E 11:39 → C.5E 12:28
PROVIDERS: ADMIT Psychiatry & Neurology Psychiatry; ATTEND Psychiatry & Neurology Psychiatry
PROC: GZHZZZZ Group Psychotherapy (ICD-10-PCS; principal; 2018-04-14)
PROC: HZ52ZZZ Individual Psychotherapy for Substance Abuse Treatment, Cognitive-Behavioral (ICD-10-PCS; 2018-04-14)
PROC: HZ2ZZZZ Detoxification Services for Substance Abuse Treatment (ICD-10-PCS; 2018-04-14)
PROC: HZ59ZZZ Individual Psychotherapy for Substance Abuse Treatment, Supportive (ICD-10-PCS; 2018-04-14)
PROC: HZ56ZZZ Individual Psychotherapy for Substance Abuse Treatment, Psychoeducation (ICD-10-PCS; 2018-04-14)
PROC: HZ42ZZZ Group Counseling for Substance Abuse Treatment, Cognitive-Behavioral (ICD-10-PCS; 2018-04-14)
PROC: HZ46ZZZ Group Counseling for Substance Abuse Treatment, Psychoeducation (ICD-10-PCS; 2018-04-14)
PROC: GZ58ZZZ Individual Psychotherapy, Cognitive-Behavioral (ICD-10-PCS; 2018-04-14)
PROC: GZ56ZZZ Individual Psychotherapy, Supportive (ICD-10-PCS; 2018-04-14)
DX: F31.4 Bipolar disorder, current episode depressed, severe, without psychotic features (principal); F11.23 Opioid dependence with withdrawal; F10.20 Alcohol dependence, uncomplicated; Y90.0 Blood alcohol level of less than 20 mg/100 ml; J45.909 Unspecified asthma, uncomplicated; T14.91XA Suicide attempt, initial encounter; X78.1XXA Intentional self-harm by knife, initial encounter; F41.8 Other specified anxiety disorders